=== PATIENT | male | born 1990 | race Two or more races ===

== ENCOUNTER 2016-12-02 21:41 | Emergency (ER) | payer MEDICAID ==
[~2016-12-02] VITALS: Ht 170.2 cm; Wt 74.1 kg
[2016-12-02 21:43] VITALS: BP 148/90
[2016-12-02] MEDS ORDERED: LIDOCAINE 1%, 20ML INFIL ONE (22:00)
[2016-12-02] MEDS ORDERED: LIDOCAINE 1%, 20ML ONE (22:01)
== END 2016-12-02 22:38 | disposition home or self-care (01) ==
LOC: ED 21:52
DX: L03.113 Cellulitis of right upper limb (principal); B20 Human immunodeficiency virus [HIV] disease; F15.10 Other stimulant abuse, uncomplicated
CPT/HCPCS: 10060; 99283